=== PATIENT | male | born 1965 | race Caucasian/White ===

== ENCOUNTER 2018-01-22 08:40 | Inpatient (IN) | payer BC ==
[2018-01-22 08:44] VITALS: BMI 33.5
[2018-01-22] MEDS ORDERED: SODIUM CHLORIDE 1,000 ML IV STA (10:01)
[2018-01-22] MEDS ORDERED: VANCOMYCIN 1,000 MG in DEXTROSE 5%-WATER - 250 ML IVPB ONE (10:10)
--- NOTE | 2018-01-22 10:17 | PDOC ---
History of Present Illness <Max Gunter - Last Filed: 01/22/18 11:39> - General History Source: Patient Exam Limitations: No Limitations - History of Present Illness Initial Comments: 01/22/18 10:52 The patient is a 52-year-old male, with no significant past medical history, who presents to the ED with 4 days of left gluteal pain. The patient noted a small bump on his left glute on Sunday01/18/18, which over the past few days has increased in size. It has now become difficult for the patient to sit down due to the pain. He reports having a fever of 101 this morning with associated chills and night sweats; highest recorded temperature was 103. Patient reports taking Motrin for the pain and fever; last dose was taken last night. The patient denies any nausea, vomiting, diarrhea, or abdominal pain. Denies any shortness of breath or chest pain. Allergies: NKA <April Sosa - Last Filed: 01/22/18 11:57> - General Chief Complaint: Lightheaded Stated Complaint: HEADACHE, FEVER Time Seen by Provider: 01/22/18 08:56 Past History - Past Medical History COPD: No - Suicide/Smoking/Psychosocial Hx Smoking History: Never smoked Information on smoking cessation initiated: No Hx Alcohol Use: No Drug/Substance Use Hx: No Substance Use Type: None <Max Gunter - Last Filed: 01/22/18 11:39> <April Sosa - Last Filed: 01/22/18 11:57> - Past Medical History Allergies/Adverse Reactions: Allergies Allergy/AdvReac Type Severity Reaction Status Date / Time No Known Allergies Allergy Verified 01/22/18 08:44 Home Medications: Ambulatory Orders NK [No Known Home Medication] 01/22/18 Review of Systems - Review of Systems Constitutional: Yes: Chills, Fever Respiratory: No: Cough, Shortness of Breath Cardiac (ROS): No: Chest Pain, Palpitations ABD/GI: No: Constipated, Diarrhea, Nausea, Vomiting : No: Dysuria, Frequency, Hematuria Integumentary: Yes: See HPI Neurological: Yes: Headache (when febrile) All Other Systems: Reviewed and Negative <Max Gunter - Last Filed: 01/22/18 11:39> - Review of Systems Able to Perform ROS?: Yes <April Sosa - Last Filed: 01/22/18 11:57> *Physical Exam - Vital Signs Last Vital Signs Temp Pulse Resp BP Pulse Ox 98.5 F 103 H 18 142/83 98 01/22/18 08:42 01/22/18 08:42 01/22/18 08:42 01/22/18 08:42 01/22/18 08:42 <Max Gunter - Last Filed: 01/22/18 11:39> - Vital Signs Last Vital Signs Temp Pulse Resp BP Pulse Ox 98.5 F 103 H 18 142/83 98 01/22/18 08:42 01/22/18 08:42 01/22/18 08:42 01/22/18 08:42 01/22/18 08:42 - Physical Exam Comments: 01/22/18 10:52 GENERAL: The patient is awake, alert, and fully oriented, in no acute distress. HEAD:[Normal with no signs of trauma. EYES: Pupils equal, round and reactive to light, extraocular movements intact, sclera anicteric, conjunctiva clear. EXTREMITIES: Normal range of motion, no edema. NEUROLOGICAL: Normal speech, normal gait. PSYCH: Normal mood, normal affect. SKIN: (+)Large area of induration, externally across the left buttock, 12 cm area of erythema and fluctuants Warm, Dry, normal turgor. <April Sosa - Last Filed: 01/22/18 11:57> Heart Score/ECG Review - ECG Intrepretation Comment:: 01/22/18 10:56 EKG was reviewed by Dr. Gunter at 10:49. Impression: Normal sinus rhythm at 94 bpm. Normal EKG. <April Sosa - Last Filed: 01/22/18 11:57> ED Treatment Course - LABORATORY CBC & Chemistry Diagram: 01/22/18 10:27 01/22/18 10:43 - RADIOLOGY Radiology Studies Ordered: Category Date Time Status CHEST X-RAY PORTABLE* [RAD] Stat Radiology 01/22/18 10:02 Ordered <Max Gunter - Last Filed: 01/22/18 11:39> - LABORATORY CBC & Chemistry Diagram: 01/22/18 10:27 01/22/18 10:43 - RADIOLOGY Radiology Studies Ordered: 01/22/18 11:56 Chest X-Ray was reviewed by Dr. Gunter and over-read by Radiology. Impression: A single view reveals a prominent mediastinum, degenerative changes and no sign of an acute process. There are no prior studies for comparison. Soft tissues are intact. <April Sosa - Last Filed: 01/22/18 11:57> Medical Decision Making - Medical Decision Making 01/22/18 10:14 A portion of this note was documented by scribe services under my direction. I have reviewed the details of the note, within reason, and agree with the documentation with the following case summary and management plan written by me. 52-year-old male with no known past medical history, does not frequently see physicians, presents with aggressive left gluteal pain for 4 days, now with persistent pain and difficulty sitting down. Also with measured fevers as high as 103, last temperature was 101 this morning. With the fever he has associated chills and night sweats, has been taking Motrin for pain and fever. No history of recurring infections, has not noted any bloody or purulent discharge. Denies any IV drug use or steroid use. Afebrile here, slight tachycardia at 103 Well-appearing, eyes open, no nuchal rigidity Cardiopulmonary and abdominal exam are normal Large 12 cm area of induration in the left buttock with erythema and fluctuance medially, does not appear to be perirectal or perianal, no discomfort on rectal exam. No active drainage. 52-year-old male with large left gluteal abscess, fever/chills which could be concerning for bacteremia. Afebrile here. Sepsis protocol initiated IV vancomycin General surgery consult given the extent of the induration/abscess, Dr. Arenas consulted Dispo accordingly 01/22/18 11:39 No leukocytosis, VBG within normal limits, chemistries pending. Seen by Dr. Arenas of general surgery, will admit patient and drain in the operating room. feels better after tylenol, received abx. <Max Gunter - Last Filed: 01/22/18 11:39> - Medical Decision Making 01/22/18 10:40 Dr. Arenas was paged and notified via phone service. <April Sosa - Last Filed: 01/22/18 11:57> *DC/Admit/Observation/Transfer - Discharge Dispostion Admit: Yes <Max Gunter - Last Filed: 01/22/18 11:39> - Attestations Scribe Attestion: 01/22/18 10:57 Documentation prepared by April Sosa, acting as medical office representative for Max Gunter MD. <April Sosa - Last Filed: 01/22/18 11:57> Diagnosis at time of Disposition: Abscess, gluteal, left - Discharge Dispostion Condition at time of disposition: Fair
[2018-01-22] MEDS ORDERED: ACETAMINOPHEN INJECTION 100 ML IVPB ONE ×2 (10:48→18:35)
[2018-01-22] MEDS ORDERED: VANCOMYCIN 1 GRAM (PRE-DOCKED) 1,000 MG/250 ML BAG IVPB ONE (10:48)
[2018-01-22 10:55] LABS: VENOUS PC02 36.5 mmHg (38-52); VENOUS PH 7.47 (7.32-7.42); VENOUS PO2 39.7 mmHg (28-48)
[2018-01-22 10:57] LABS: BASO % 0.4 % (0-2.0); EOS % 0.4 % (0-4.5); HEMATOCRIT 38.7 % (35.4-49); HEMOGLOBIN 13.4 GM/dL (11.7-16.9); LYMPH % 11.5 % (8-40); MCH 30.1 pg (25.7-33.7); MCHC 34.7 g/dl (32.0-35.9); MEAN CELL VOLUME 86.7 fl (80-96); MEAN PLT VOLUME 8.8 fl (7.5-11.1); MONO % 13.3 % (3.8-10.2); NEUT % 74.4 % (42.8-82.8); PLATELET COUNT 179 K/MM3 (134-434); RBC 4.46 M/mm3 (4.00-5.60)
[2018-01-22] MEDS: ACETAMINOPHEN 1000 MG/100 ML VIAL (NON FORMULARY) IVPB ONE ×2 (11:00→18:35)
[2018-01-22 11:13] LABS: INR 1.29 (0.82-1.09); PROTHROMBIN TIME (PATIENT) 14.6 SEC (9.98-11.88)
[2018-01-22 11:16] LABS: ACTIVATED PTT 26.6 SECONDS (26.9-34.4)
--- NOTE | 2018-01-22 11:55 | CONSULT ---
Consult Consult Specialty:: general surgery Referred by:: Duke Gunter MD Reason for Consultation:: gluteal abscess - History of Present Illness Chief Complaint: right buttock pain History of Present Illness: 52 yo male no significant PMH presents to the ED with 4 days of left gluteal pain. The patient noted a small bump on his left glute on Sunday01/18/18, which over the past few days has increased in size. It has now become difficult for the patient to sit down due to the pain. He reports having a fever of 101 this morning with associated chills and night sweats; highest recorded temperature was 103. Patient reports taking Motrin for the pain and fever; last dose was taken last night. We were asked to assess. - History Source History Provided By: Patient, Medical Record Limitations to Obtaining History: No Limitations - Alcohol/Substance Use Hx Alcohol Use: No - Smoking History Smoking history: Never smoked - Social History Usual Living Arrangement: With Spouse Place of : [facility] Home Medications - Allergies Allergies/Adverse Reactions: Allergies Allergy/AdvReac Type Severity Reaction Status Date / Time No Known Allergies Allergy Verified 01/22/18 08:44 - Home Medications Home Medications: Ambulatory Orders NK [No Known Home Medication] 01/22/18 Review of Systems - Review of Systems Constitutional: denies: Chills, Fever Eyes: denies: Blind Spots, Recent Change in Vision HENT: denies: Difficult Swallowing, Throat Pain Cardiovascular: denies: Chest Pain, Palpitations Respiratory: denies: Cough, SOB Integumentary: denies: Lesions, Rash Neurological: denies: Seizure, Syncope Endocrine: denies: Unexplained Weight Gain, Unexplained Weight Loss Hematology/Lymphatic: denies: Easily Bruised, Excessive Bleeding Psychiatric: denies: Anxiety, Depression Physical Exam Vital Signs: Vital Signs Temperature 103.7 F H 01/22/18 10:30 Pulse Rate 110 H 01/22/18 10:30 Respiratory Rate 20 01/22/18 10:30 Blood Pressure 142/83 01/22/18 08:42 O2 Sat by Pulse Oximetry (%) 98 01/22/18 10:30 Vital Signs Period Temp Pulse Resp BP Sys/Kim Pulse Ox Last 24 Hr 98.5 F-103.7 F 103-110 18-20 142/83 98-100 Constitutional: Yes: Well Nourished, No Distress, Calm Eyes: Yes: Conjunctiva Clear, EOM Intact HENT: Yes: Atraumatic, Normocephalic Neck: Yes: Supple, Trachea Midline Cardiovascular: Yes: Regular Rate and Rhythm, S1, S2 Respiratory: Yes: Regular, CTA Bilaterally Gastrointestinal: Yes: Normal Bowel Sounds, Soft, Abdomen, Obese. No: Tenderness, Tenderness, Epigastrium, Tenderness, Rebound ...Rectal Exam: Yes: Erythema (left buttock, medial punctum, SHELBY not possible) Renal/: No: CVA Tenderness - Left, CVA Tenderness - Right Musculoskeletal: No: Muscle Pain, Muscle Weakness Extremities: No: Cool, Cyanosis Integumentary: No: Jaundice, Rash Neurological: Yes: Alert, Oriented Psychiatric: Yes: Alert, Oriented Labs: CBC, BMP 01/22/18 10:27 01/22/18 10:43 Problem List - Problems (1) Abscess, gluteal, left Assessment/Plan: 52 yo male with left gluteal abscess NPO and IVF hydration IV antibitics OR for EUD and I&D of left gluteal abscess Discussed with patient risks, benefits and alternatives of proposed Procedure, including but not limited to bleeding, infection, injury to adjacent structures , leak or injury, intraabdominal abscess, need for further procedures, ; alternatives include antibiotics, delayed or no surgery - risks of this include failure of nonoperative therapy, perforation, sepsis, recurrence, . Patient desires to proceed with operation - will take to OR for above. Informed consent signed for same. Code(s): L02.31 - CUTANEOUS ABSCESS OF BUTTOCK (2) Fever Code(s): R50.9 - FEVER, UNSPECIFIED Qualifiers: Fever type: due to other condition Qualified Code(s): R50.81 - Fever presenting with conditions classified elsewhere
--- NOTE | 2018-01-22 11:59 | HP ---
Admitting History and Physical - Admission Chief Complaint: left gluteal pain and swelling History of Present Illness: 52 yo male no significant PMH presents to the ED with 4 days of left gluteal pain. The patient noted a small bump on his left glute on Sunday01/18/18, which over the past few days has increased in size. It has now become difficult for the patient to sit down due to the pain. He reports having a fever of 101 this morning with associated chills and night sweats; highest recorded temperature was 103. Patient reports taking Motrin for the pain and fever; last dose was taken last night. We were asked to assess. History Source: Patient, Medical Record Limitations to Obtaining History: No Limitations - Smoking History Smoking history: Never smoked - Alcohol/Substance Use Hx Alcohol Use: No Home Medications - Allergies Allergies/Adverse Reactions: Allergies Allergy/AdvReac Type Severity Reaction Status Date / Time No Known Allergies Allergy Verified 01/22/18 08:44 - Home Medications Home Medications: Ambulatory Orders NK [No Known Home Medication] 01/22/18 Review of Systems - Review of Systems Constitutional: reports: Fever (103 at home). denies: Chills Eyes: denies: Blind Spots, Recent Change in Vision HENT: denies: Difficult Swallowing, Throat Pain Neck: denies: Pain on Movement, Swollen Glands Cardiovascular: denies: Chest Pain, Palpitations Respiratory: denies: Cough, SOB Gastrointestinal: denies: Abdominal Pain, Constipation Genitourinary: denies: Burning, Discharge, Dysuria Breasts: reports: No Symptoms Reported. denies: Pain Musculoskeletal: denies: Muscle Pain, Muscle Weakness Integumentary: denies: Lesions, Lump, Rash Neurological: denies: Change in LOC, Weakness Endocrine: denies: Unexplained Weight Gain, Unexplained Weight Loss Hematology/Lymphatic: denies: Easily Bruised, Excessive Bleeding Psychiatric: denies: Anxiety, Depression Physical Examination Vital Signs: Vital Signs Temperature 103.7 F H 01/22/18 10:30 Pulse Rate 110 H 01/22/18 10:30 Respiratory Rate 20 01/22/18 10:30 Blood Pressure 142/83 01/22/18 08:42 O2 Sat by Pulse Oximetry (%) 98 01/22/18 10:30 Vital Signs Period Temp Pulse Resp BP Sys/Kim Pulse Ox Last 24 Hr 98.5 F-103.7 F 103-110 18-20 142/83 98-100 Constitutional: Yes: Well Nourished, No Distress, Calm Eyes: Yes: Conjunctiva Clear, EOM Intact HENT: Yes: Atraumatic, Normocephalic Neck: Yes: Supple, Trachea Midline Cardiovascular: Yes: Regular Rate and Rhythm, S1, S2 Respiratory: Yes: Regular, CTA Bilaterally Gastrointestinal: Yes: Normal Bowel Sounds, Soft, Abdomen, Obese. No: Tenderness ...Rectal Exam: Yes: Erythema (left gluteal swelling) Renal/: No: CVA Tenderness - Left, CVA Tenderness - Right Musculoskeletal: No: Muscle Pain, Muscle Weakness Extremities: No: Cool, Cyanosis Edema: No Peripheral Pulses WNL: Yes Integumentary: Yes: Erythema. No: Jaundice, Rash Neurological: Yes: Alert, Oriented Psychiatric: Yes: Alert, Oriented Labs: CBC, BMP 01/22/18 10:27 01/22/18 10:43 Imaging - Results Ultrasound: Report Reviewed, Image Reviewed (ED ultrasound) Problem List - Problems (1) Abscess, gluteal, left Assessment/Plan: 52 yo male with left gluteal abscess NPO and IVF hydration IV antibitics OR for EUD and I&D of left gluteal abscess Discussed with patient risks, benefits and alternatives of proposed Procedure, including but not limited to bleeding, infection, injury to adjacent structures , leak or injury, intraabdominal abscess, need for further procedures, ; alternatives include antibiotics, delayed or no surgery - risks of this include failure of nonoperative therapy, perforation, sepsis, recurrence, . Patient desires to proceed with operation - will take to OR for above. Informed consent signed for same. Code(s): L02.31 - CUTANEOUS ABSCESS OF BUTTOCK (2) Fever Code(s): R50.9 - FEVER, UNSPECIFIED Qualifiers: Fever type: due to other condition Qualified Code(s): R50.81 - Fever presenting with conditions classified elsewhere
[2018-01-22] MEDS ORDERED: PIPERACILLIN/TAZOB 4.5 GM/100 ML PREMIX BAG IVPB ONE ×2 (12:06→17:38)
[2018-01-22] MEDS ORDERED: LACTATED RINGERS SOLUTION 1000 ML INFUS.BAG IV ONE (12:08)
[2018-01-22 12:15] LABS: URINE APPEARANCE CLEAR; URINE BLOOD NEGATIVE (NEGATIVE); URINE COLOR AMBER; URINE GLUCOSE (UA) NEGATIVE (NEGATIVE); URINE KETONE NEGATIVE (NEGATIVE); URINE LEUK ESTERASE NEGATIVE (NEGATIVE); URINE NITRITE NEGATIVE (NEGATIVE); URINE UROBILINOGEN 4.0 E.U/dl mg/dL (0.2-1.0)
[2018-01-22] MEDS ORDERED: LACTATED RINGERS SOLUTION 1,000 ML/1,000 ML INFUS.BAG IV SCH (12:15)
[2018-01-22 12:30] LABS: URINE PROTEIN 1+ (NEGATIVE)
[2018-01-22 12:35] LABS: EPI CELLS RARE /HPF (FEW); URINE MUCUS FEW
[2018-01-22] MEDS ORDERED: PIPERACILLIN/TAZOB 4.5 GM 4.5 GM/100 ML BAG IVPB ONE (12:46)
[2018-01-22] MEDS ORDERED: METOCLOPRAMIDE HCL INJECTION 10 MG/2 ML VIAL IVPB ONE (12:47)
[2018-01-22] MEDS ORDERED: METOCLOPRAMIDE HCL INJECTION 10 MG/2 ML VIAL ONE (12:48)
[2018-01-22] MEDS ORDERED: PIPERACILLIN/TAZOB 4.5 GM 4.5 GM in DEXTROSE 5%-WATER - 100 ML IVPB ONE (13:00)
[2018-01-22 13:13] LABS: ALBUMIN 3.2 g/dl (3.4-5.0); ANION GAP 11 (8-16); BLOOD UREA NITROGEN 16 mg/dL (7-18); CALCIUM 8.4 mg/dL (8.5-10.1); CHLORIDE 103 mmol/L (98-107); CO2 24 mmol/L (21-32); CREATININE 1.1 mg/dL (0.7-1.3); GLUCOSE,RANDOM 118 mg/dL (74-106); POTASSIUM 3.9 mmol/L (3.5-5.1); SGOT/AST 24 U/L (15-37); SGPT/ALT 30 U/L (12-78); SODIUM 138 mmol/L (136-145)
[2018-01-22 13:14] LABS: ALK PHOS 65 U/L (45-117); BILIRUBIN,TOTAL 0.9 mg/dL (0.2-1.0); TOT PROT 6.5 g/dl (6.4-8.2)
--- NOTE | 2018-01-22 13:33 | EKG ---
Test Reason : Blood Pressure : / mmHG Vent. Rate : 094 BPM Atrial Rate : 094 BPM P-R Int : 142 ms QRS Dur : 084 ms QT Int : 338 ms P-R-T Axes : 054 046 027 degrees QTc Int : 422 ms NORMAL SINUS RHYTHM POSSIBLE LEFT ATRIAL ENLARGEMENT BORDERLINE ECG NO PREVIOUS ECGS AVAILABLE Confirmed by MD Demarcus, Tyson ([id number]) on 01/22/2018 1:33:07 PM Referred By: Confirmed By:Tyson Tracy MD
[2018-01-22] MEDS ORDERED: BUPIVACAINE HCL/PF 0.5% (5MG/ML) 10 ML VIAL ONE (14:16)
[2018-01-22] MEDS ORDERED: BUPIVACAINE HCL/PF 0.5% (5MG/ML) 10 ML VIAL IJ ONE ×2 (14:25→15:04)
[2018-01-22] MEDS ORDERED: KETAMINE HCL 200 MG/20 ML VIAL ONE (14:39)
[2018-01-22] MEDS ORDERED: PROPOFOL 20 ML ONE (14:39)
[2018-01-22] MEDS ORDERED: MIDAZOLAM HCL 2 MG/2 ML SINGLE DOSE VIAL ONE ×2 (14:39)
[2018-01-22] MEDS ORDERED: ONDANSETRON 4 MG/2 ML VIAL IVPUSH PRN (15:22)
[2018-01-22] MEDS ORDERED: LACTATED RINGERS SOLUTION 1,000 ML IV SCH (15:30)
[2018-01-22] MEDS ORDERED: morphine SULFATE 4 MG/ML VIAL IVPUSH PRN (15:31)
[2018-01-22] MEDS ORDERED: IBUPROFEN 600 MG TABLET (FP) PO PRN ×2 (15:31→18:36)
[2018-01-22] MEDS ORDERED: D5-1/2NS+20 MEQ KCL - 20 MEQ/1,000 ML INFUS.BAG IV SCH (15:45)
--- NOTE | 2018-01-22 17:43 | OP ---
Operative Note - Note: Operative Date: 01/22/18 Pre-Operative Diagnosis: left gluteal abscess Operation: incison and drainage of left gluteal abscess Findings: 100ml of rojas foul smelling pus, 2cm cutiate incision made 1 inch iodoform packing Post-Operative Diagnosis: Same as Pre-op Surgeon: Rodney Arenas Anesthesiologist/PULMONOLOGIST: Teofilo Wright Anesthesia: Local (0.5% marcaine), MAC Specimens Removed: culture sangeeta Estimated Blood Loss (mls): 20 Fluid Volume Replaced (mls): 300 Operative Report Dictated: Yes
[2018-01-22] MEDS ORDERED: PIPERACILLIN/TAZOB 4.5 GM 4.5 GM in DEXTROSE 5%-WATER 100 ML IVPB ONE (18:00)
[2018-01-22] MEDS ORDERED: ACETAMINOPHEN 1000 MG/100 ML VIAL (NON FORMULARY) IVPB ONE (18:35)
[2018-01-22] MEDS ORDERED: ACETAMINOPHEN 325 MG TABLET (FP) PO PRN (18:36)
[2018-01-23 07:27] LABS: ANION GAP 8 (8-16); BLOOD UREA NITROGEN 17 mg/dL (7-18); CALCIUM 8.2 mg/dL (8.5-10.1); CHLORIDE 108 mmol/L (98-107); CO2 25 mmol/L (21-32); GLUCOSE,RANDOM 85 mg/dL (74-106); POTASSIUM 4.1 mmol/L (3.5-5.1); SODIUM 141 mmol/L (136-145)
[2018-01-23 07:33] LABS: BASO % 0.4 % (0-2.0); EOS % 2.1 % (0-4.5); HEMATOCRIT 35.7 % (35.4-49); HEMOGLOBIN 12.5 GM/dL (11.7-16.9); LYMPH % 19.2 % (8-40); MCH 30.4 pg (25.7-33.7); MCHC 35.1 g/dl (32.0-35.9); MEAN CELL VOLUME 86.7 fl (80-96); MEAN PLT VOLUME 8.8 fl (7.5-11.1); MONO % 14.3 % (3.8-10.2); PLATELET COUNT 164 K/MM3 (134-434); RBC 4.11 M/mm3 (4.00-5.60)
--- NOTE | 2018-01-23 10:00 | PN ---
Progress Note, Physician Chief Complaint: left buttock pain History of Present Illness: 52 yo male no significant PMH presents to the ED with 4 days of left gluteal pain. The patient noted a small bump on his left glute on Sunday01/18/18, which over the past few days has increased in size. postopertaively her has been febrile. pain is adequately controlled. Dressing is due for change. - Current Medication List Current Medications: Active Medications Acetaminophen (Tylenol -) 650 mg PO Q6H PRN PRN Reason: PAIN LEVEL 1 - 3 Potassium Chloride/Dextrose/Sod Cl (D5-1/2ns+20 Meq Kcl -) 20 meq in 1,000 mls @ 100 mls/hr IV ASDIR REINA Last Admin: 01/22/18 18:22 Dose: 100 mls/hr Ibuprofen (Motrin -) 600 mg PO Q6H PRN PRN Reason: PAIN LEVEL 4 - 6 Last Admin: 01/23/18 02:18 Dose: 600 mg Morphine Sulfate (Morphine Sulfate) 2 mg IVPUSH Q4H PRN PRN Reason: PAIN LEVEL 7 - 10 Ondansetron HCl (Zofran Injection) 4 mg IVPUSH Q6H PRN PRN Reason: NAUSEA AND/OR VOMITING - Objective Vital Signs: Vital Signs Temperature 97.5 F L 01/23/18 06:35 Pulse Rate 65 01/23/18 06:35 Respiratory Rate 20 01/23/18 06:35 Blood Pressure 106/67 01/23/18 06:35 O2 Sat by Pulse Oximetry (%) 97 01/22/18 23:08 Vital Signs Period Temp Pulse Resp BP Sys/Kim Pulse Ox Last 24 Hr 97.5 F-103.7 F 18-110 14-22 106-169/56-89 96-100 Constitutional: Yes: No Distress, Calm, Obese Eyes: Yes: Conjunctiva Clear, EOM Intact HENT: Yes: Atraumatic, Normocephalic Neck: Yes: Supple, Trachea Midline Cardiovascular: Yes: Regular Rate and Rhythm, S1, S2 Respiratory: Yes: Regular, CTA Bilaterally Gastrointestinal: Yes: Normal Bowel Sounds, Soft, Abdomen, Obese. No: Tenderness ...Rectal Exam: Yes: Erythema, Sphincter Tone Normal, Other (Left medial gluteal crease 2X2cm crutiate with iodoform packing.) Genitourinary: No: CVA Tenderness - Left, CVA Tenderness - Right Edema: No Peripheral Pulses WNL: Yes Integumentary: No: Jaundice, Rash Wound/Incision: Yes: Draining, Reddened, Unapproximated (Left medial gluteal crease 2X2cm crutiate with iodoform packing.) Neurological: Yes: Alert, Oriented Psychiatric: Yes: Alert, Oriented Labs: CBC, BMP 01/23/18 05:35 01/23/18 05:35 INR, PTT INR 1.29 (0.82-1.09) H 01/22/18 10:43 Problem List - Problems (1) Abscess, gluteal, left Assessment/Plan: 52 yo male with left gluteal abscess POD#1 s/p I&D of left gluteal abscess. Regular diet f/u wound culture Daily Dressing Change Left Gluteal Cruciate: Wound Measurement: 2X2cm Cross that is packed 3xcm depth Dressing Instructions: 1" iodoform packing, 4X4 gauze sponges OR Combine pad and 3"silk Tape continued IV antibiotics Home antibiotics regimen per ID once afebrile D/C home with VNS Code(s): L02.31 - CUTANEOUS ABSCESS OF BUTTOCK (2) Fever Code(s): R50.9 - FEVER, UNSPECIFIED Qualifiers: Fever type: due to other condition Qualified Code(s): R50.81 - Fever presenting with conditions classified elsewhere
[2018-01-23] MEDS ORDERED: LACTATED RINGERS SOLUTION 1,000 ML/1,000 ML INFUS.BAG IV SCH (10:30)
[2018-01-23] MEDS ORDERED: PIPERACIL/TAZOB 3.375 GM 3.375 GM/50 ML PREMIX IVPB SCH (10:30)
[2018-01-23] MEDS ORDERED: PIPERACILLIN/TAZOBACTAM 3.375 GM VIAL IVPB ONE ×2 (11:18→19:50)
[2018-01-23] MEDS ORDERED: DEXTROSE 5%-WATER - 50 ML IVPB ONE ×2 (11:18→19:50)
[2018-01-23] MEDS: PIPERACILLIN/TAZOB 3.375 GM 3.375 GM in DEXTROSE 5%-WATER - 50 ML IVPB SCH ×2 (11:22→20:00)
--- NOTE | 2018-01-23 12:53 | CON.ID ---
Consult Consult Specialty:: infectious diseases Referred by:: Reason for Consultation:: glueteal abscess,fever - History of Present Illness Chief Complaint: fever,pain,swelling of the gluteal region History of Present Illness: 52 yo male no significant PMH presents admitted because of 4 days of left gluteal pain according to the patient he thought it might be a bite he also mentions he was having fevers The patient noted a small bump on his left glute on Sunday01/18/18, which over the past few days has increased in size. It was difficult for the patient to sit down due to the pain. patient continued to have fevers patient was admitted to the hospital received broad spectrum abx surgery saw and took the patient to the operating room currently the patient feels better except pain at the operated region patient did spike fever early this morning family in the room - History Source History Provided By: Patient Limitations to Obtaining History: No Limitations - Alcohol/Substance Use Hx Alcohol Use: No - Smoking History Smoking history: Never smoked - Social History Usual Living Arrangement: With Spouse Home Medications - Allergies Allergies/Adverse Reactions: Allergies Allergy/AdvReac Type Severity Reaction Status Date / Time No Known Allergies Allergy Verified 01/22/18 08:44 - Home Medications Home Medications: Ambulatory Orders NK [No Known Home Medication] 01/22/18 Review of Systems - Review of Systems Constitutional: reports: Fever Eyes: reports: No Symptoms HENT: reports: No Symptoms Neck: reports: No Symptoms Cardiovascular: reports: No Symptoms Respiratory: reports: No Symptoms Gastrointestinal: reports: No Symptoms Genitourinary: reports: No Symptoms Musculoskeletal: reports: No Symptoms Integumentary: reports: Wound, Other Neurological: reports: No Symptoms Endocrine: reports: No Symptoms Hematology/Lymphatic: reports: No Symptoms Psychiatric: reports: No Symptoms Physical Exam Vital Signs: Vital Signs Temperature 97.5 F L 01/23/18 06:35 Pulse Rate 65 01/23/18 06:35 Respiratory Rate 20 01/23/18 06:35 Blood Pressure 106/67 01/23/18 06:35 O2 Sat by Pulse Oximetry (%) 97 01/22/18 23:08 Constitutional: Yes: Well Nourished, No Distress, Calm Cardiovascular: Yes: Regular Rate and Rhythm Respiratory: Yes: Regular, CTA Bilaterally Gastrointestinal: Yes: Normal Bowel Sounds, Soft Musculoskeletal: Yes: WNL Extremities: Yes: WNL Wound/Incision: Yes: Dressing Dry and Intact Neurological: Yes: Alert, Oriented Psychiatric: Yes: Alert, Oriented Labs: CBC, BMP 01/23/18 05:35 01/23/18 05:35 Imaging - Results Chest X-ray: Report Reviewed, Image Reviewed Assessment/Plan Problem List - Problems (1) Abscess, gluteal, left Code(s): L02.31 - CUTANEOUS ABSCESS OF BUTTOCK (2) Fever Code(s): R50.9 - FEVER, UNSPECIFIED Qualifiers: Fever type: due to other condition Qualified Code(s): R50.81 - Fever presenting with conditions classified elsewhere patient stable still spiking fevers await for wound cx plan continue abx for now monitor for fevers once patient afebrile and we have cx result back then should be able to switch to oral rest continue current mgmt wound care
[2018-01-24] MEDS ORDERED: DEXTROSE 5%-WATER - 50 ML IVPB ONE ×2 (00:54→11:36)
[2018-01-24] MEDS ORDERED: PIPERACILLIN/TAZOBACTAM 3.375 GM VIAL IVPB ONE ×2 (00:54→11:36)
[2018-01-24] MEDS: PIPERACILLIN/TAZOB 3.375 GM 3.375 GM in DEXTROSE 5%-WATER - 50 ML IVPB SCH ×2 (01:31→11:38)
--- NOTE | 2018-01-24 09:40 | DS ---
Physical Examination Vital Signs: Vital Signs Temperature 98.7 F 01/24/18 06:00 Pulse Rate 66 01/24/18 06:00 Respiratory Rate 20 01/24/18 06:00 Blood Pressure 137/78 01/24/18 06:00 O2 Sat by Pulse Oximetry (%) 97 01/23/18 21:00 Vital Signs Period Temp Pulse Resp BP Sys/Kim Pulse Ox Last 24 Hr 97.5 F-99.7 F 66-76 20-20 122-152/59-91 97 Constitutional: Yes: No Distress, Calm, Obese Eyes: Yes: Conjunctiva Clear, EOM Intact HENT: Yes: Atraumatic, Normocephalic Neck: Yes: Supple, Trachea Midline Cardiovascular: Yes: Regular Rate and Rhythm, S1, S2. No: Murmur Respiratory: Yes: Regular, CTA Bilaterally Gastrointestinal: Yes: Normal Bowel Sounds, Soft. No: Tenderness ...Rectal Exam: Yes: Other (Left gluteal wound, 2cm cruciate incision) Renal/: No: CVA Tenderness - Left, CVA Tenderness - Right Musculoskeletal: No: Muscle Pain, Muscle Weakness Extremities: No: Cool, Cyanosis Wound/Incision: Yes: Clean/Dry, Dressing Removed, Draining, Unapproximated ( left medial gluteal fold). No: Reddened, Bleeding, Excoriated Neurological: No: Alert, Oriented Psychiatric: No: Alert, Oriented Labs: CBC, BMP 01/23/18 05:35 01/23/18 05:35 Microbiology 01/22/18 10:43 Blood - Peripheral Venous Blood Culture - Preliminary NO GROWTH OBTAINED AFTER 24 HOURS, INCUBATION TO CONTINUE FOR 4 DAYS. 01/22/18 10:27 Blood - Peripheral Venous Blood Culture - Preliminary NO GROWTH OBTAINED AFTER 24 HOURS, INCUBATION TO CONTINUE FOR 4 DAYS. Discharge Summary Reason For Visit: ABSCESS OF LEFT BUTTOCK Current Active Problems Abscess, gluteal, left (Acute) Fever (Acute) Procedures: Principal: incision and drainge of left gluteal abscess Other Procedures: IV antibiotics, Antipyretic therapy, IVF hydration Hospital Course: Admitted with high fevers 103 and 2 weeks of left gluteal swelling. Taken for incison and drainage of large left gluteal abscess. Persistent post operative fevers >101. Given additional IV antibiotics until afebrile for 24 hours and discharged with VNS on home regimen. Condition: Improved - Instructions Diet, Activity, Other Instructions: Postoperative instructions: You had a Incision and Drainage of Left Gluteal Abscess on 01/22/[address] Rodney Arenas of [facility]. Activity: Resume your usual activities gradually, but no heavy exertion or lifting more than 10-15 pounds for 4-6 weeks. Remove dressings 48 hours after surgery, if they are not already off. You may shower daily starting then, just pat the incision areas dry. [place] should not need to be recovered with any dressings, unless you have been told otherwise. Eat lightly at first, but advance to your usual diet as tolerated. Pain: For pain, you may use and alternate Tylenol (acetaminophen) and/or ibuprofen every 6 hours each as needed; this means that you can take one OR the other at 3-hour intervals. If you are prescribed a Tylenol/narcotic combination for severe pain, use it instead of plain Tylenol as needed and switch back when your pain starts decreasing. Do not take more than 4000mg of acetaminophen in a day. Take medications as prescribed or indicated on the labeling. Follow-up: Call Dr. Arenas' office at [phone] to make your postop appointment (Sunday 1-2 weeks after surgery as advised). Clinic is held in the [facility] on the first floor of [facility]. Call the office if you have: * increasing pain not responsive to pain medication * fever of 101F or higher * unusual or increasing bleeding or drainage from wounds * increasing redness or swelling at wound sites * inability to urinate Also, see your primary medical doctor within 1-2 weeks. Disposition: VNS/HOME HEALTH CARE - Home Medications Comprehensive Discharge Medication List: Ambulatory Orders NK [No Known Home Medication] 01/22/18 Augmentin 875mg/125mg 1 tab PO BID X 7 days, Disp #14 Percocet 5mg/325mg 1 tab PO q 6 hours prn Pain
--- NOTE | 2018-01-24 13:31 | PN ---
Progress Note, Physician History of Present Illness: doing well no new issues wound stable cx result noted organism not identified - Current Medication List Current Medications: Active Medications Acetaminophen (Tylenol -) 650 mg PO Q6H PRN PRN Reason: PAIN LEVEL 1 - 3 Amoxicillin/Clavulanate Potassium (Augmentin - 875mg Tablet) 1 tab PO BID@0800, 1730 REINA Lactated Ringer's (Lactated Ringers Solution) 1,000 ml in 1,000 mls @ 125 mls/ hr IV ASDIR REINA Last Admin: 01/23/18 11:22 Dose: 125 mls/hr Ondansetron HCl (Zofran Injection) 4 mg IVPUSH Q6H PRN PRN Reason: NAUSEA AND/OR VOMITING - Objective Vital Signs: Vital Signs Temperature 98.7 F 01/24/18 06:00 Pulse Rate 66 01/24/18 06:00 Respiratory Rate 20 01/24/18 06:00 Blood Pressure 137/78 01/24/18 06:00 O2 Sat by Pulse Oximetry (%) 97 01/23/18 21:00 Constitutional: Yes: No Distress, Calm Cardiovascular: Yes: Regular Rate and Rhythm Respiratory: Yes: Regular, CTA Bilaterally Gastrointestinal: Yes: Normal Bowel Sounds, Soft Musculoskeletal: Yes: WNL Extremities: Yes: WNL Wound/Incision: Yes: Dressing Dry and Intact Neurological: Yes: Alert, Oriented Psychiatric: Yes: Alert, Oriented Labs: CBC, BMP 01/23/18 05:35 01/23/18 05:35 INR, PTT INR 1.29 (0.82-1.09) H 01/22/18 10:43 Assessment/Plan Problem List - Problems (1) Abscess, gluteal, left Code(s): L02.31 - CUTANEOUS ABSCESS OF BUTTOCK (2) Fever Code(s): R50.9 - FEVER, UNSPECIFIED Qualifiers: Fever type: due to other condition Qualified Code(s): R50.81 - Fever presenting with conditions classified elsewhere patient has now been afebrile more than 24 hours plan will change to oral abx follow identification of organism augmentin 875mg bid for 10 days wound care as per surgical team
[2018-01-24 15:27] VITALS: BP 147/82; PULSE 65; TEMP 98.4
[2018-01-24] MEDS ORDERED: AMOX TR/POT CLAV 875MG/125MG TABLETS (FP) PO SCH (17:30)
== END 2018-01-24 14:51 | disposition home health service (06) | DRG 581 ==
LOC: JER 08:40 → JASUSAT 11:41 → J8W 20:25 → JASUSAT 01-23 17:14
PROC: 0J990ZZ Drainage of Buttock Subcutaneous Tissue and Fascia, Open Approach (ICD-10-PCS; principal; 2018-01-22 18:45)
DX: L02.31 Cutaneous abscess of buttock (principal); R50.81 Fever presenting with conditions classified elsewhere; E66.9 Obesity, unspecified; Z68.33 Body mass index [BMI] 33.0-33.9, adult
CPT/HCPCS: 36415; 71045-TC-FY; 80048; 80053; 81003; 81015; 82803; 83605; 85025; 85610; 85730; 86850; 86900; 86901; 87040; 87070; 87076; 87077; 87186; 87205; 93005; 93010; 94760; 99285-25; J0131; J7030

== ENCOUNTER 2018-07-02 04:14 | Emergency (ER) | payer BC ==
[2018-07-02 04:47] VITALS: BMI 32.8
[2018-07-02] MEDS ORDERED: ACETAMINOPHEN 500 MG TABLET (FP) PO ONE (04:56)
--- NOTE | 2018-07-02 05:03 | PDOC ---
History of Present Illness - General Chief Complaint: Pain Stated Complaint: R/O KIDNEY STONES Time Seen by Provider: 07/02/18 04:35 History Source: Patient Exam Limitations: No Limitations - History of Present Illness Initial Comments: 07/02/18 04:57 This is a 53 YOM with h/o distant prior kidney stones and admission here to [facility] for buttock abscess who p/w sharp left flank pain fluctuating up to 10/10 over the past three days (3/10 currently) which kept him from sleeping overnight tonight and causes him to writhe, not being able to get comfortable. He notes that the pain radiated to his LLQ and feels the same as his prior kidney stone (which was many years ago). He denies dysuria, blood in the urine, testicular pain or swelling, skin changed, f/c/n/v/d/c, black/bloody/white stool , SOB, chest pain, cough, midline back pain, or other symptoms. His last dose of analgesics was at about 2:30 am today and was Motrin. Past History - Past Medical History Allergies/Adverse Reactions: Allergies Allergy/AdvReac Type Severity Reaction Status Date / Time No Known Allergies Allergy Verified 01/22/18 08:44 Home Medications: Ambulatory Orders Naproxen [Naprosyn -] 500 mg PO BID #10 tablet 07/02/18 Tamsulosin HCl 0.4 mg PO DAILY #7 cap.er.24h 07/02/18 COPD: No - Suicide/Smoking/Psychosocial Hx Smoking History: Never smoked Have you smoked in the past 12 months: No Information on smoking cessation initiated: No Hx Alcohol Use: No Drug/Substance Use Hx: No Substance Use Type: None Hx Substance Use Treatment: No Review of Systems - Review of Systems Able to Perform ROS?: Yes Constitutional: No: Chills, Fever, Unexplained wgt Loss HEENTM: No: Nose Congestion, Throat Pain Respiratory: No: Cough, Shortness of Breath Cardiac (ROS): No: Chest Pain, Palpitations ABD/GI: Yes: Other (left lower abdominal pain). No: Constipated, Diarrhea, Nausea, Vomiting : Yes: Flank Pain (left). No: Burning, Dysuria, Frequency, Hematuria, Urgency , Testicular Mass, Testicular Swelling, Testicular Pain Musculoskeletal: Yes: Back Pain (left flank). No: Neck Pain Integumentary: No: Bruising, Rash Neurological: No: Headache, Numbness, Tingling, Weakness, Dizziness Endocrine: No: Unexplained Weight Gain, Unexplained Weight Loss *Physical Exam - Vital Signs Last Vital Signs Temp Pulse Resp BP Pulse Ox 97.6 F 88 19 155/95 98 07/02/18 04:20 07/02/18 04:20 07/02/18 04:20 07/02/18 04:07/02/18 04:20 - Physical Exam General Appearance: Yes: Nourished, Appropriately Dressed, Other (alert, oriented, accompanied by significant other, answers appropriately, slightly diaphoretic scalp, appears mildly uncomfortable). No: Apparent Distress HEENT: positive: EOMI, Normal Voice, Hearing Grossly Normal. negative: Scleral Icterus (R), Scleral Icterus (L), Nasal Congestion Neck: positive: Trachea midline, Supple. negative: Tender, Rigid Respiratory/Chest: positive: Lungs Clear, Normal Breath Sounds. negative: Respiratory Distress, Crackles, Rhonchi, Stridor, Wheezing Cardiovascular: positive: Regular Rhythm, Regular Rate, S1, S2. negative: Edema , JVD, Murmur Gastrointestinal/Abdominal: positive: Normal Bowel Sounds, Tender (mild LLQ ttp) , Soft, Protuberent (mildly and stated chronic). negative: Organomegaly, Pulsatile Mass, Guarding Musculoskeletal: positive: Normal Inspection, CVA Tenderness (L), Other (no stepoff or deformity). negative: CVA Tenderness (R), Decreased Range of Motion , Muscle Spasm, Vertebral Tenderness Extremity: positive: Normal Capillary Refill, Normal Inspection, Normal Range of Motion. negative: Tender, Cyanosis Integumentary: positive: Normal Color, Dry, Warm. 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 Initial Vital Signs Temp Pulse Resp BP Pulse Ox 97.6 F 88 19 155/95 98 07/02/18 04:20 07/02/18 04:20 07/02/18 04:20 07/02/18 04:20 07/02/18 04:20 Exam: As noted in Physical Exam section. DDX IBNLT: renal colic, obstructive uropathy, UTI/pyelonephritis, rental artery aneurysm or dissection (gilda w/ hematuria and no stone visualized on imaging), ACS, AAA/AD, pneumothorax, PE, cholecystitis, cholangitis, pancreatitis, gastritis, PUD, colitis, ruptured diverticulosis, diverticulitis wwo abscess or perforation, appendicitis, hernia, SBO, malignancy, splenic infarction, mesenteric ischemia, bowel perforation, testicular torsion, epididymitis, orchitis, urethritis, musculoskeletal, constipation, etc. W/U ordered: UA UCx, Spiral CT renal stone protocol TX ordered: Tylenol PO (patient does not want IV) CT/SPIRAL- RENAL-STONE CT HISTORY PROVIDED: Rule out renal stone TECHNIQUE: Sequential axial images were obtained from the domes of the diaphragm through the symphysis pubis utilizing urinary tract calculi protocol. The lung bases are clear. There is a 4 mm calcification at the left ureterovesical junction consistent with a partially obstructing calculus. There is a mild degree of hydronephrosis associated with this stone. There is no evidence of additional calcifications within the kidneys, ureters or urinary bladder suspicious for urinary tract calculi. There is no evidence of a right-sided hydronephrosis or obstructive uropathy. There are 2 right renal cysts present. The liver is normal in size. It is hypodense in texture consistent with diffuse fatty infiltration. No mass lesions are identified within the liver. No significant abnormalities of the spleen, pancreas, or adrenal glands are identified. There appear to be small gallstones within the gallbladder. There is no evidence of intra-abdominal, retroperitoneal or pelvic mass lesions, fluid collections or lymphadenopathy. There is no evidence of acute bony abnormalities. IMPRESSION: 4 mm left UVJ calculus with mild hydronephrosis. Please see above discussion. 07/02/18 06:[address] is notable for about a 4 mm ureteral stone at the left UVJ. Also right renal cysts x2. Ordered is CBCD CMP butterfly draw. Patient still appears uncomfortable; 5 mg oxycodone ordered. [facility] the end of my shift. *DC/Admit/Observation/Transfer Diagnosis at time of Disposition: Ureteral calculus - Discharge Dispostion Disposition: AGAINST MEDICAL ADVICE Condition at time of disposition: Stable Decision to Admit order: No - Prescriptions Prescriptions: Naproxen [Naprosyn -] 500 mg PO BID #10 tablet Tamsulosin HCl 0.4 mg PO DAILY #7 cap.er.24h - Referrals Referrals: Mauro Martel MD [Staff Physician] - - Patient Instructions Printed Discharge Instructions: DI for Kidney Stones Additional Instructions: You were seen in the ER for a kidney stone that is trying to pass. We did laboratory tests on your urine. We did not see signs of an infection in the urine or on your vital signs. We also did a CT scan which showed the stone, which we believe is about 4 mm. Your lab results show that you have some damage to your kidney function. We gave you medications which helped your symptoms. After our assessment, we do not believe you are having a medical emergency at this time, and we believe you are safe to go home. 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 We are giving you referral information for a urologist in case you need a new one. Please take over the counter pain medications for pain, following the instructions on the medication label. Please follow up with our urologist Dr. Martel in 1 -3 days. Call their clinic [facility], tell them you were seen in the ER, and tell them you need an appointment. Please come back to the ER at any time, 24 hours a day, for any new or worsening symptoms, like worsening pain unrelieved with medications, fever, inability to urinate, burning on urination, testicular pain or swelling, or other symptoms. If you are having severe or life threatening symptoms, or symptoms that make it unsafe to drive or have someone drive you, please call 911. - Post Discharge Activity
[2018-07-02] MEDS ORDERED: ACETAMINOPHEN 325 MG TABLET (FP) ONE (05:04)
--- NOTE | 2018-07-02 06:23 | PDOC ---
Attending Attestation - Resident Resident Name: Alejandra Cerna - ED Attending Attestation I have performed the following: I have examined & evaluated the patient, The case was reviewed & discussed with the resident, I agree w/resident's findings & plan, Exceptions are as noted - HPI HPI: 07/02/18 06:21 53-year-old male with a history of previous renal colic many years ago here today complaining of left lower quadrant and left flank pain. Patient states it' s been going on for 3 days it has migrated lower in the groin region denies any testicular pain no nausea no vomiting no fevers no chills no hematuria feels similar to his prior kidney stone no new numbness or tingling or weakness in the extremities - Physicial Exam PE: 07/02/18 06:22 Awake alert no acute distress lungs are clear bilaterally heart is regular without any murmurs rubs or gallops abdomen is soft and nontender there is positive left CVA tenderness extremities are warm and well-perfused no due to O 3 skin is warm and dry - Medical Decision Making 07/02/18 06:23 53-year-old male history of previous renal colic it today complaining of left flank left lower quadrant pain symmetric prior stones differential includes renal colic renal failure UTI Pedro plan CT abdomen and pelvis pain control basic blood work reassess
[2018-07-02] MEDS ORDERED: oxyCODONE HCL 5 MG TABLET PO ONE (06:25)
[2018-07-02] MEDS ORDERED: oxyCODONE HCL 5 MG TABLET ONE (06:44)
[2018-07-02 06:45] LABS: BASO % 0.9 % (0-2.0); EOS % 1.6 % (0-4.5); HEMATOCRIT 42.2 % (35.4-49); HEMOGLOBIN 14.7 GM/dL (11.7-16.9); LYMPH % 19.9 % (8-40); MCH 29.8 pg (25.7-33.7); MCHC 34.9 g/dl (32.0-35.9); MEAN CELL VOLUME 85.3 fl (80-96); MEAN PLT VOLUME 8.5 fl (7.5-11.1); MONO % 10.8 % (3.8-10.2); NEUT % 66.8 % (42.8-82.8); PLATELET COUNT 158 K/MM3 (134-434); RBC 4.95 M/mm3 (4.00-5.60); RDW 13.8 % (11.9-15.9); WHITE BLOOD COUNT 7.1 K/mm3 (4.0-10.0)
[2018-07-02 07:07] LABS: ALBUMIN 3.9 g/dl (3.4-5.0); ALK PHOS 60 U/L (45-117); ANION GAP 8 MMOL/L (8-16); BILIRUBIN,TOTAL 0.9 mg/dL (0.2-1); BLOOD UREA NITROGEN 29 mg/dL (7-18); CALCIUM 8.9 mg/dL (8.5-10.1); CHLORIDE 106 mmol/L (98-107); CO2 24 mmol/L (21-32); GLUCOSE,RANDOM 107 mg/dL (74-106); POTASSIUM 4.5 mmol/L (3.5-5.1); SGOT/AST 22 U/L (15-37); SGPT/ALT 29 U/L (13-61); SODIUM 138 mmol/L (136-145); TOT PROT 7.3 g/dl (6.4-8.2)
[2018-07-02] MEDS ORDERED: SODIUM CHLORIDE 0.9% 1000 ML INFUS.BAG IV ONE (07:25)
[2018-07-02] MEDS ORDERED: TAMSULOSIN HCL 0.4 MG CAP.ER.24H (FP) PO ONE (07:25)
[2018-07-02] MEDS ORDERED: SODIUM CHLORIDE 1,000 ML IV STA (07:26)
[2018-07-02] MEDS ORDERED: TAMSULOSIN HCL 0.4 MG CAP.ER.24H (FP) ONE (07:28)
--- NOTE | 2018-07-02 08:21 | PDOC ---
*Physical Exam - Vital Signs Last Vital Signs Temp Pulse Resp BP Pulse Ox 97.6 F 88 19 155/95 98 07/02/18 04:20 07/02/18 04:20 07/02/18 04:20 07/02/18 04:20 07/02/18 04:20 - Physical Exam Comments: 07/02/18 10:35 General Appearance: Nourished. No Apparent Distress HEENT: No Pharyngeal Erythema, Tonsillar Exudate, Tonsillar Erythema Neck: No Cervical Lymphadenopathy Respiratory/Chest: Lungs Clear, Normal Breath Sounds. No Crackles, Rales, Rhonchi, Wheezing Cardiovascular: Regular Rhythm, Regular Rate. No Murmur, Gallops, Rubs Gastrointestinal/Abdominal: Normal Bowel Sounds, Soft. No Guarding, Rebound, Tenderness Musculoskeletal: No CVA Tenderness Extremity: Normal Capillary Refill Integumentary: Normal Color, Dry, Warm Neurologic: Fully Oriented, Alert, Normal Mood/Affect, Normal Response, ED Treatment Course - LABORATORY CBC & Chemistry Diagram: 07/02/18 06:30 07/02/18 11:39 - ADDITIONAL ORDERS Additional order review: Laboratory Results 07/02/18 06:30 Sodium 138 Potassium 4.5 Chloride 106 Carbon Dioxide 24 Anion Gap 8 BUN 29 H Creatinine 2.0 H Creat Clearance w eGFR 34.99 Random Glucose 107 H Calcium 8.9 Total Bilirubin 0.9 AST 22 ALT 29 Alkaline Phosphatase 60 Total Protein 7.3 Albumin 3.9 07/02/18 06:30 RBC 4.95 MCV 85.3 MCHC 34.9 RDW 13.8 MPV 8.5 Neutrophils % 66.8 Lymphocytes % 19.9 Monocytes % 10.8 H Eosinophils % 1.6 Basophils % 0.9 - Medications Given in the ED: ED Medications Discontinued Medications Generic Name Dose Route Start Last Admin Trade Name Freq PRN Reason Stop Dose Admin Acetaminophen 975 mg 07/02/18 04:56 07/02/18 05:14 Tylenol - PO 07/02/18 04:57 975 mg ONCE ONE Administration Oxycodone HCl 5 mg 07/02/18 06:25 07/02/18 06:49 Roxicodone - PO 07/02/18 06:26 5 mg ONCE ONE Administration Progress Note - Progress Note Progress Note: The patient is a 53 year old male who was found to have a 4mm kidney stone at the UVJ. The patient is pending lab results and urine results. Dispo per lab work up. Medical Decision Making - Medical Decision Making 07/02/18 10:37 CBC is unremarkable. CMP demonstrates a creatinine of 2.0 which is elevated from the patient's priors. We will treat with iv fluids and obtain a repeat bmp. 07/02/18 12:49 Repeat BMP demonstrates creatinine of 1.8. We recommend that the patient be admitted due to his CONNIE from a kidney stone. The patient voiced that he wished to leave AMA. We discussed the risks with leaving AMA including but not limited to , permanent disability, and kidney failure and the patient continued to wish to leave AMA. We discussed the benefits of admission and the patient continued to wish to leave AMA. The patient stated that he would follow up on an outpatient basis. The patient signed the AMA form and his IV was removed. The patient stated that he would call to schedule a follow up appointment with Dr. Martel. *DC/Admit/Observation/Transfer Diagnosis at time of Disposition: Ureteral calculus - Discharge Dispostion Disposition: AGAINST MEDICAL ADVICE Condition at time of disposition: Stable - Prescriptions Prescriptions: Naproxen [Naprosyn -] 500 mg PO BID #10 tablet Tamsulosin HCl 0.4 mg PO DAILY #7 cap.er.24h - Referrals Referrals: Mauro Martel MD [Staff Physician] - - Patient Instructions Printed Discharge Instructions: DI for Kidney Stones Additional Instructions: You were seen in the ER for a kidney stone that is trying to pass. We did laboratory tests on your urine. We did not see signs of an infection in the urine or on your vital signs. We also did a CT scan which showed the stone, which we believe is about 4 mm. Your lab results show that you have some damage to your kidney function. We gave you medications which helped your symptoms. After our assessment, we do not believe you are having a medical emergency at this time, and we believe you are safe to go home. 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 We are giving you referral information for a urologist in case you need a new one. Please take over the counter pain medications for pain, following the instructions on the medication label. Please follow up with our urologist Dr. Martel in 1 -3 days. Call their clinic [facility], tell them you were seen in the ER, and tell them you need an appointment. Please come back to the ER at any time, 24 hours a day, for any new or worsening symptoms, like worsening pain unrelieved with medications, fever, inability to urinate, burning on urination, testicular pain or swelling, or other symptoms. If you are having severe or life threatening symptoms, or symptoms that make it unsafe to drive or have someone drive you, please call 911. - Post Discharge Activity
[2018-07-02] MEDS ORDERED: KETOROLAC TROMETHAMINE 30 MG/1 ML VIAL IVPUSH ONE (08:47)
[2018-07-02] MEDS ORDERED: KETOROLAC TROMETHAMINE 30 MG/1 ML VIAL ONE (08:50)
[2018-07-02 11:11] LABS: URINE APPEARANCE CLEAR; URINE BILIRUBIN NEGATIVE (<2.0 mg/dL); URINE COLOR YELLOW; URINE GLUCOSE (UA) NEGATIVE (NEGATIVE); URINE KETONE NEGATIVE (NEGATIVE); URINE LEUK ESTERASE NEGATIVE (NEGATIVE); URINE NITRITE NEGATIVE (NEGATIVE); URINE PROTEIN NEGATIVE (NEGATIVE); URINE UROBILINOGEN NEGATIVE mg/dL (0.2-1.0)
[2018-07-02 12:24] LABS: ANION GAP 10 MMOL/L (8-16); BLOOD UREA NITROGEN 26 mg/dL (7-18); CALCIUM 8.8 mg/dL (8.5-10.1); CHLORIDE 108 mmol/L (98-107); CO2 24 mmol/L (21-32); CREATININE 1.8 mg/dL (0.55-1.3); GLUCOSE,RANDOM 96 mg/dL (74-106); POTASSIUM 4.6 mmol/L (3.5-5.1); SODIUM 142 mmol/L (136-145)
[2018-07-02 12:51] VITALS: BP 143/84; PULSE 75; TEMP 98.3
== END 2018-07-02 12:00 | disposition left against medical advice (07) ==
LOC: JER 04:14
PROC: 3E0333Z Introduction of Anti-inflammatory into Peripheral Vein, Percutaneous Approach (ICD-10-PCS; principal; 2018-07-02)
PROC: 3E0337Z Introduction of Electrolytic and Water Balance Substance into Peripheral Vein, Percutaneous Approach (ICD-10-PCS; 2018-07-02)
DX: R10.32 Left lower quadrant pain (principal); N20.1 Calculus of ureter
CPT/HCPCS: 36415; 74176; 80048; 80053; 81003; 85025; 87086; 99282-25; J7030